=== PATIENT | female | born 1980 | race Caucasian/White ===

== ENCOUNTER 2017-03-30 02:07 | Inpatient (IN) | payer OTHER ==
[~2017-03-30] VITALS: Ht 157.5 cm; Wt 94.0 kg
[2017-03-30 06:00] VITALS: BP 105/60; RESP 20
[2017-03-30 06:01] VITALS: Ht 157.5 cm; Wt 94.0 kg
[2017-03-30] MEDS ORDERED: METF500T3 PO (06:02)
[2017-03-30 06:08] VITALS: BP 131/72; PULSE 85; RESP 18
[2017-03-30] MEDS ORDERED: OMEP40CA6 PO (06:08)
[2017-03-30] MEDS ORDERED: TRAM50TA2 PO (06:08)
[2017-03-30] MEDS ORDERED: IBUP200C PO (06:08)
[2017-03-30] MEDS ORDERED: GABA300C PO (06:08)
[2017-03-30 08:00] VITALS: BP 85/54; RESP 20
[2017-03-30] MEDS ORDERED: DEXTROSE 5%-0.45% NACL 1,000 ML IV SCH (08:59)
[2017-03-30] MEDS ORDERED: NACL 0.9% 3 ML SYG IV SCH (09:00)
[2017-03-30] MEDS ORDERED: ONDANSETRON 4 MG INJ IV PRN (09:00)
[2017-03-30] MEDS ORDERED: ALBUTEROL/IPRATROPIUM (NEB) 3 ML AMP HHN PRN (09:00)
--- NOTE | 2017-03-30 09:41 | HP ---
Date/Time of Note Date/Time of Note DATE: 03/30/17 TIME: 09:31 Assessment/Plan VTE Prophylaxis VTE Prophylaxis Intervention: SCD's Lines/Catheters IV Catheter Type (from Nrs): Saline [place] Assessment/Plan Assessment/Plan 1. Abdominal pain with diarrhea, possibly from a calculus cholecystitis vs gastritis/PUD vs possible infectious process -will obtain right upper quadrant ultrasound -will empirically treat with IV antibiotic -Surgical consult -PPI -Check LFTs and lipase -Check C. difficile and stool culture 2. History of type 2 diabetes -Check A1c -Insulin while in-house 3. History of gastritis -PPI 4. Obesity with a BMI of 38 -Weight reduction advised HPI/ROS Admit Date/Time Admit Date/Time Mar 30, 2017 at 05:30 Hx of Present Illness This is a 36-year-old obese female with a history of type 2 diabetes, gastritis , and a neuropathy who initially presented to [facility] ER complaining of abdominal pain 2 days. Patient was transferred to [facility] for insurance reasons. Pain is in the epigastric and also right upper quadrant area. The pain intermittently radiates to her back. She reported associated diarrhea described as watery and loose. She also reported nausea and nonbloody nonbilious vomiting. She said she had similar symptom but was less intensity 2 months ago. At that time she said she was diagnosed with a UTI and treated with antibiotic. On further questioning, she said she had tacos at a friend's house and she thinks it was under cooked. She had imaging at the outside hospital which showed pericholecystic fluid, but was negative for Gallstones. Her initial vitals was within normal limits except that she was tachycardic with a heart rate of 111.. LFTs and lipase were within acceptable range. PMH/Family/Social Social History Smoking Status: Never smoker Exam/Review of Systems Vital Signs Vitals Vital Signs Date Time Temp Pulse Resp B/P Pulse Ox O2 Delivery O2 Flow Rate FiO2 03/30/17 08:00 98.2 60 20 85/54 95 Exam Constitutional: alert, oriented Head: atraumatic, normocephalic Eyes: EOMI Respiratory: clear to auscultation, normal air movement Cardiovascular: nl pulses, regular rate and rhythm Gastrointestinal: soft, tender Extremities: normal pulses Medications Medications Current Medications Influenza Virus Vaccine 0.5 ml 0.5 ml ONCE ONCE IM* ; Start 03/30/17 at 10:00; Stop 03/30/17 at 10:01 Dextrose/Sodium Chloride (D5-1/2ns) 1,000 ml @ 100 mls/hr Q10H IV ; Start 05/06 at 08:59 Ondansetron HCl (Zofran Inj) 4 mg Q6H PRN IV NAUSEA AND/OR VOMITING; Start 05/06 at 09:00 Morphine Sulfate (morphine) 3 mg Q4H PRN IV SEVERE PAIN LEVEL 7-10; Start 05/06 at 09:00 Famotidine (Pepcid Iv) 20 mg Q12 IV ; Start 03/30/17 at 09:00 Miscellaneous Information (* Miscellaneous Pharmacy Order) Discontinue current oral sulfonylur... ONCE ONCE XX ; Start 03/30/17 at 09:30; Stop 03/30/17 at 09:31 Diagnostic Test (Pha) (Accu-Chek) 1 ea 02 XX ; Start 03/31/17 at 02:00 Miscellaneous Information (* Miscellaneous Pharmacy Order) HYPOGLYCEMIA PROTOCOL w... ONCE ONCE XX ; Start 03/30/17 at 09:30; Stop 03/30/17 at 09:31 Miscellaneous Information (* Miscellaneous Pharmacy Order) Discontinue all previ... ONCE ONCE XX ; Start 03/30/17 at 09:30; Stop 03/30/17 at 09:31 Diagnostic Test (Pha) (Accu-Chek) 1 ea 02 XX ; Start 03/31/17 at 02:00 Ketorolac Tromethamine (Toradol) 30 mg Q6H PRN IV PAIN; Start 03/30/17 at 09: 30; Stop 04/02/17 at 09:29 Insulin Aspart (Novolog Insulin Pen) (Adult SC Insulin - Mild Algorithm)... Q6 SC ; Start 03/30/17 at 12:00 YAZMIN ESCOBAR MD Mar 30, 2017 09:41
[2017-03-30] MEDS ORDERED: SOD CHLORIDE 0.9% 1,000 ML IV SCH (10:00)
[2017-03-30] MEDS ORDERED: INFLUENZA VIRUS VACCINE 0.5 ML SYG IM* ONE (10:00)
[2017-03-30] MEDS: morphine 2 MG INJ IV PRN ×2 (10:17→17:56)
[2017-03-30 10:53] LABS: BASOPHILS % 0.3 % (0.0-2.0); EOSINOPHILS # 0.1 10^3/ul (0.0-0.5); EOSINOPHILS % 1.2 % (0.0-7.0); HEMATOCRIT 34.2 % (37.0-47.0); HEMOGLOBIN 10.9 g/dl (12.0-16.0); LYMPHOCYTES # 2.5 10^3/ul (0.8-2.9); LYMPHOCYTES % 28.1 % (15.0-51.0); MEAN CORPUSCULAR HEMOGLOBIN 24.9 pg (29.0-33.0); MEAN CORPUSCULAR HGB CONC 31.9 g/dl (32.0-37.0); MEAN CORPUSCULAR VOLUME 78.1 fl (82.0-101.0); MEAN PLATELET VOLUME 8.7 fl (7.4-10.4); MONOCYTE # 0.5 10^3/ul (0.3-0.9); MONOCYTES % 5.1 % (0.0-11.0); NEUTROPHIL # 5.8 10^3/ul (1.6-7.5); PLATELET COUNT 386 10^3/UL (140-415); RED BLOOD COUNT 4.38 10^6/ul (4.20-5.40); RED CELL DISTRIBUTION WIDTH 14.6 % (11.5-14.5)
[2017-03-30 11:11] LABS: ALBUMIN 3.7 g/dl (3.3-4.9); ALBUMIN/GLOBULIN RATIO 1.23; BILIRUBIN,INDIRECT 0.7 mg/dl (0-1.1); BILIRUBIN,TOTAL 0.7 mg/dl (0.2-1.3); CALCIUM 8.6 mg/dl (8.4-10.2); CHOL/HDL RATIO 3.5 RATIO; CREATININE 0.75 mg/dl (0.44-1.00); MAGNESIUM 2.1 mg/dl (1.7-2.5); PHOSPHORUS 4.3 mg/dl (2.5-4.9); POTASSIUM 3.6 mmol/L (3.5-5.1); TOTAL PROTEIN 6.7 g/dl (6.1-8.1)
[2017-03-30] MEDS: DEXTROSE 5%-0.9% NACL 1,000 ML IV SCH ×3 (11:25→23:52)
[2017-03-30] MEDS: FAMOTIDINE 20 MG INJ IV SCH ×2 (11:25→21:03)
[2017-03-30] MEDS: PIPER-TAZO 3.375 GM IV (PMX) 100 ML IVPB SCH ×3 (11:35→23:45)
--- NOTE | 2017-03-30 11:40 | RADRPT ---
PROCEDURE: US Abdomen and retroperitoneal complete. CLINICAL INDICATION: abdominal pain TECHNIQUE: Multiple real-time images were acquired of the patient's abdomen and retroperitoneum ut ilizing a high resolution transducer. COMPARISON: None FINDINGS: The liver demonstrates increased echogenicity. The liver is normal in size and no focal solid lesio ns are seen. The portal vein is patent with normal direction of flow. No intrahepatic biliary dila tation is seen. The liver measures 18.1 cm in length. No gallstones are identified within the gallbladder. There is no pericholecystic fluid or gallbladd er wall thickening. The common bile duct measures 4 mm in maximal dimension. The visualized portions of the pancreas are unremarkable. The tail of the pancreas is not seen. The spleen is normal in size. The spleen measures 10.9 cm in length. No free fluid is identified. The kidneys are normal in size, and demonstrate normal cortical echogenicity and cortical thickness. The right kidney measures 9.9 cm. The left kidney measures 10.5 cm. There is no evidence of hydr onephrosis. There are no kidney stones. The proximal aorta measures 1.7 cm in transverse dimension. RPTAT: AA IMPRESSION: Diffuse fatty infiltration of the liver. Otherwise unremarkable. .Robert Newell MD, Date Time Electronically viewed and signed by .Robert Newell MD, MD on 03/30/2017 11:39 .S/
[2017-03-30] MEDS ORDERED: INSULIN ASPART [NOVOLOG] 3 ML PEN SC SCH (12:15)
[2017-03-30] MEDS: Insulin NOVOLOG SS MILD Algorithm (NPO/TPN/ENTERAL FEEDS) SC SCH ×3 (12:51→23:49)
[2017-03-30 15:24] VITALS: BP 92/54; RESP 18
[2017-03-30] MEDS: PANTOPRAZOLE 40 MG INJ IV SCH (17:51)
[2017-03-30 18:05] LABS: ADD UMIC NO; UR AMORPHOUS CRYSTAL FEW /HPF (NONE SEEN); UR ASCORBIC ACID NEGATIVE (NEGATIVE); UR BILIRUBIN (Dip) NEGATIVE (NEGATIVE); UR BLOOD (Dip) NEGATIVE (NEGATIVE); UR CLARITY SLIGHTLY CLOUDY (CLEAR); UR COLOR YELLOW (YELLOW); UR GLUCOSE (Dip) NEGATIVE (NEGATIVE); UR KETONES (Dip) NEGATIVE (NEGATIVE); UR LEUKOCYTE ESTERASE (Dip) NEGATIVE Leu/ul (NEGATIVE); UR NITRITE (Dip) NEGATIVE (NEGATIVE); UR RBC 1 /HPF (0-5); UR SPECIFIC GRAVITY (Dip) 1.018 (1.003-1.030); UR SQUAMOUS EPITHELIAL CELL FEW /HPF (FEW); UR TOTAL PROTEIN (Dip) NEGATIVE (NEGATIVE); UR UROBILINOGEN (Dip) NEGATIVE (NEGATIVE)
[2017-03-30 20:32] VITALS: BP 105/55; RESP 18
[2017-03-30] MEDS: KETOROLAC 30 MG INJ IV PRN (21:04)
[2017-03-31 02:00] VITALS: BP 92/55; RESP 20
[2017-03-31] MEDS: ACCU-CHEK XX SCH ×2 (02:00)
[2017-03-31] MEDS: PANTOPRAZOLE 40 MG INJ IV SCH ×2 (05:32→17:08)
[2017-03-31] MEDS: PIPER-TAZO 3.375 GM IV (PMX) 100 ML IVPB SCH ×3 (05:33→17:08)
[2017-03-31] MEDS: Insulin NOVOLOG SS MILD Algorithm (NPO/TPN/ENTERAL FEEDS) SC SCH ×3 (05:42→17:10)
[2017-03-31 05:44] LABS: BASOPHIL # 0.1 10^3/ul (0.0-0.1); BASOPHILS % 0.7 % (0.0-2.0); EOSINOPHILS # 0.2 10^3/ul (0.0-0.5); EOSINOPHILS % 2.1 % (0.0-7.0); HEMATOCRIT 34.2 % (37.0-47.0); HEMOGLOBIN 10.6 g/dl (12.0-16.0); LYMPHOCYTES # 1.7 10^3/ul (0.8-2.9); LYMPHOCYTES % 22.6 % (15.0-51.0); MEAN CORPUSCULAR HEMOGLOBIN 24.5 pg (29.0-33.0); MEAN PLATELET VOLUME 8.5 fl (7.4-10.4); MONOCYTE # 0.4 10^3/ul (0.3-0.9); MONOCYTES % 5.7 % (0.0-11.0); NEUTROPHIL # 5.2 10^3/ul (1.6-7.5); NEUTROPHILS % 68.6 % (39.0-77.0); PLATELET COUNT 358 10^3/UL (140-415); RED BLOOD COUNT 4.33 10^6/ul (4.20-5.40); RED CELL DISTRIBUTION WIDTH 14.6 % (11.5-14.5); WHITE BLOOD COUNT 7.6 10^3/ul (4.8-10.8)
[2017-03-31 06:02] LABS: CREATININE 0.88 mg/dl (0.44-1.00); MAGNESIUM 2.1 mg/dl (1.7-2.5); POTASSIUM 3.7 mmol/L (3.5-5.1)
[2017-03-31 07:26] VITALS: BP 91/51; RESP 18
[2017-03-31] MEDS: DEXTROSE 5%-0.9% NACL 1,000 ML IV SCH ×3 (07:30→17:10)
[2017-03-31] MEDS: FAMOTIDINE 20 MG INJ IV SCH (09:56)
[2017-03-31] MEDS: morphine 2 MG INJ IV PRN (10:14)
--- NOTE | 2017-03-31 13:56 | CONS ---
Date/Time of Note Date/Time of Note DATE: 03/31/17 TIME: 13:30 Assessment/Plan Assessment/Plan Chief Complaint/Hosp Course Summary Assessment and Plan: Assessment: Abdominal pain DDX: PUD vs gastritis vs celiac disease vs microscopic colitis Microcytic anemia Type 2 diabetes Obesity Plan: Upper endoscopy/Colonoscopy-scheduled for 04/01 Risks/benefits/alternatives/indications of procedure and sedation/anesthesia discussed with patient who states understanding and gives informed consent to proceed. Questions were answered. Clear liquids diet today- then NPO after midnight Continue PPI therapy Continue pain management Continue antiemetic therapy Patient seen in collaboration with Dr. Silva Chief Complaint/Reason for Visit: Abdominal pain with diarrhea x 2 days, nausea, and vomiting History of Present Illness: 36 year old female with history of abdominal pain since Tuesday accompanied with n/v and diarrhea x2 days. Initially she c/o epigastric pain described as burning , now she c/o LLQ and RLQ pain intermittently radiating to her back. Abdominal u /s on 03/30 shows fatty liver otherwise negative. No further episodes of diarrhea. She denies melena, hematemesis, hematochezia, or unintentional weight loss. Patient has a hx of GERD well controlled with PPI therapy, hx of previous shoulder surgery 2016, and has taken ibuprofen 600mg to 800mg daily since surgery. No previous endoscopies, noted. Past Medical History: Low grade anemia Gastritis Internal hemorrhoids Type 2 diabetes Neuropathy Left shoulder surgery x2 x3 Allergies: No know drug allergies Family History: Gallbladder cancer i.e. mother DM HTN Social History: ETOH x2 drinks per month Denies smoking Denies drug use Problems: Consultation Date/Type/Reason Admit Date/Time Mar 30, 2017 at 05:30 Date of Consultation: Mar 31, 2017 Social History Smoking Status: Never smoker Exam/Review of Systems Vital Signs Vitals Vital Signs Date Time Temp Pulse Resp B/P Pulse Ox O2 Delivery O2 Flow Rate FiO2 03/31/17 07:26 97.6 77 18 91/51 92 Intake and Output 03/30/17 03/30/17 03/31/17 15:00 23:00 07:00 Intake Total 100 ml 600 ml 1200 ml Output Total 400 ml Balance 100 ml 600 ml 800 ml Results Result Diagram: 03/31/17 0516 03/31/17 0516 Results 24 hrs Laboratory Tests Test 03/30/17 17:36 03/30/17 17:50 03/30/17 23:48 03/31/17 05:16 Bedside Glucose 129 140 Urine Color YELLOW Urine Clarity SLIGHTLY CLOUDY A Urine pH 5.0 Urine Specific [place] 1.018 Urine Ketones NEGATIVE Urine Nitrite NEGATIVE Urine Bilirubin NEGATIVE Urine Urobilinogen NEGATIVE Urine Leukocyte Esterase NEGATIVE Urine Microscopic RBC 1 Urine Microscopic WBC 1 Urine Squamous Epithelial Cells FEW Urine Amorphous Crystals FEW A Urine Hemoglobin NEGATIVE Urine Glucose NEGATIVE Urine Total Protein NEGATIVE White Blood Count 7.6 Red Blood Count 4.33 Hemoglobin 10.6 L Hematocrit 34.2 L Mean Corpuscular Volume 79.0 L Mean Corpuscular Hemoglobin 24.5 L Mean Corpuscular Hemoglobin Concent 31.0 L Red Cell Distribution Width 14.6 H Platelet Count 358 Mean Platelet Volume 8.5 Neutrophils % 68.6 Lymphocytes % 22.6 Monocytes % 5.7 Eosinophils % 2.1 Basophils % 0.7 Nucleated Red Blood Cells % 0.0 Neutrophils # 5.2 Lymphocytes # 1.7 Monocytes # 0.4 Eosinophils # 0.2 Basophils # 0.1 Nucleated Red Blood Cells # 0.0 Sodium Level 139 Potassium Level 3.7 Chloride Level 108 Carbon Dioxide Level 27 Anion Gap 8 Blood Urea Nitrogen 10 Creatinine 0.88 Glucose Level 149 Calcium Level 8.0 L Phosphorus Level 4.0 Magnesium Level 2.1 Test 03/31/17 05:34 03/31/17 11:43 Bedside Glucose 142 121 Medications Medications Current Medications Ondansetron HCl (Zofran Inj) 4 mg Q6H PRN IV NAUSEA AND/OR VOMITING Last administered on 03/31/17 11:44; Admin Dose 4 MG; Start 03/30/17 at 09:00 Morphine Sulfate (morphine) 3 mg Q4H PRN IV SEVERE PAIN LEVEL 7-10 Last administered on 03/31/17 10:14; Admin Dose 3 MG; Start 03/30/17 at 09:00 Famotidine (Pepcid Iv) 20 mg Q12 IV Last administered on 03/31/17 09:56; Admin Dose 20 MG; Start 03/30/17 at 09:00 Diagnostic Test (Pha) (Accu-Chek) 1 ea 02 XX ; Start 03/31/17 at 02:00 Diagnostic Test (Pha) (Accu-Chek) 1 ea 02 XX ; Start 03/31/17 at 02:00 Ketorolac Tromethamine (Toradol) 30 mg Q6H PRN IV PAIN Last administered on 21:04; Admin Dose 30 MG; Start 03/30/17 at 09:30; Stop 04/02/17 at 09: 29 Insulin Aspart (Adult SC Insulin - Mild Algorithm)... Q6 SC Last administered on 03/31/17 05:42; Admin Dose 1 UNIT; Start 03/30/17 at 12:00 Piperacillin Sod/ Tazobactam Sod 100 ml @ 200 mls/hr Q6 IVPB Last administered on 03/31/17 11:09; Admin Dose 200 MLS/HR; Start 03/30/17 at 12: 00 Dextrose/Sodium Chloride (D5-NS) 1,000 ml @ 100 mls/hr Q10H IV Last administered on 03/31/17 09:56; Admin Dose 100 MLS/HR; Start 03/30/17 at 11: 30 Pantoprazole (Protonix Iv) 40 mg BID@06,18 IV Last administered on 03/31/17 05:32; Admin Dose 40 MG; Start 03/30/17 at 18:00 ANATOLY SÁNCHEZ Mar 31, 2017 13:42
[2017-03-31] MEDS ORDERED: BISACODYL (EC) 5 MG TAB PO ONE (14:30)
[2017-03-31] MEDS ORDERED: MAGNESIUM CITRATE 300 ML BTL PO ONE ×2 (17:30→20:30)
[2017-03-31] MEDS ORDERED: POLYETHYLENE GLYCOL 3350 119 GM POWDER PO ONE (18:30)
[2017-03-31 19:32] VITALS: BP 109/55; RESP 20
--- NOTE | 2017-03-31 20:21 | RADRPT ---
PROCEDURE: X-ray Chest. CLINICAL INDICATION: Preoperative evaluation. TECHNIQUE: PA and lateral chest x-ray. COMPARISON: None available. FINDINGS: The cardiomediastinal silhouette is within normal limits. The lungs are clear without fo tres consolidation, effusion, or pneumothorax. There are no acute osseous abnormalities. There is pos toperative change in the proximal left humerus. IMPRESSION: 1. No acute cardiopulmonary abnormality. RPTAT: HLBP .Bhavik Gonsales MD, MD Date Time Electronically viewed and signed by .Bhavik Gonsales MD, MD on 03/31/2017 20:21 .P/
--- NOTE | 2017-03-31 21:38 | PN ---
Date/Time of Note Date/Time of Note DATE: 03/31/17 TIME: 21:35 Assessment/Plan VTE Prophylaxis VTE Prophylaxis Intervention: SCD's Lines/Catheters IV Catheter Type (from Nrs): Peripheral IV Assessment/Plan Chief Complaint/Hosp Course Assessment and plan 1. Reported abdominal pain. Previous imaging from outside facility was suspect for possible cholecystitis however abdominal ultrasound imaging done while in-house was negative for any acute findings. Lipase normal. patient initially started on PPI medication with no good response. [employer] was consulted. Tentative plan for EGD. 2. Type 2 diabetes. Continue insulin regimen. Will just need. Stable at present. 3. History of gastritis. Continue PPI medication 4. Obesity. BMI of 38. Weight reduction is advised. Disposition plan: Tentative plan for GI intervention. Continue with PPI medication for now. Discussed plan of care with Dr. Frost Problems: Subjective 24 Hr Interval Summary Free Text/Dictation Patient still reports of abdominal pain. More epigastric area. 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, nl mental status, nl speech Results Result Diagram: 03/31/1716 03/31/1716 Results 24 hrs Laboratory Tests Test 03/30/17 23:48 03/31/17 05:16 03/31/17 05:34 03/31/17 11:43 Bedside Glucose 140 142 121 White Blood Count 7.6 Red Blood Count 4.33 Hemoglobin 10.6 L Hematocrit 34.2 L Mean Corpuscular Volume 79.0 L Mean Corpuscular Hemoglobin 24.5 L Mean Corpuscular Hemoglobin Concent 31.0 L Red Cell Distribution Width 14.6 H Platelet Count 358 Mean Platelet Volume 8.5 Neutrophils % 68.6 Lymphocytes % 22.6 Monocytes % 5.7 Eosinophils % 2.1 Basophils % 0.7 Nucleated Red Blood Cells % 0.0 Neutrophils # 5.2 Lymphocytes # 1.7 Monocytes # 0.4 Eosinophils # 0.2 Basophils # 0.1 Nucleated Red Blood Cells # 0.0 Sodium Level 139 Potassium Level 3.7 Chloride Level 108 Carbon Dioxide Level 27 Anion Gap 8 Blood Urea Nitrogen 10 Creatinine 0.88 Glucose Level 149 Calcium Level 8.0 L Phosphorus Level 4.0 Magnesium Level 2.1 Test 03/31/17 17:10 Bedside Glucose 119 Medications Medications Current Medications Ondansetron HCl (Zofran Inj) 4 mg Q6H PRN IV NAUSEA AND/OR VOMITING Last administered on 03/31/17 11:44; Admin Dose 4 MG; Start 03/30/17 at 09:00 Morphine Sulfate (morphine) 3 mg Q4H PRN IV SEVERE PAIN LEVEL 7-10 Last administered on 03/31/17 10:14; Admin Dose 3 MG; Start 03/30/17 at 09:00 Diagnostic Test (Pha) (Accu-Chek) 1 ea 02 XX ; Start 03/31/17 at 02:00 Diagnostic Test (Pha) (Accu-Chek) 1 ea 02 XX ; Start 03/31/17 at 02:00 Ketorolac Tromethamine (Toradol) 30 mg Q6H PRN IV PAIN Last administered on 21:04; Admin Dose 30 MG; Start 03/30/17 at 09:30; Stop 04/02/17 at 09: 29 Insulin Aspart (Adult SC Insulin - Mild Algorithm)... Q6 SC Last administered on 03/31/17 05:42; Admin Dose 1 UNIT; Start 03/30/17 at 12:00 Piperacillin Sod/ Tazobactam Sod 100 ml @ 200 mls/hr Q6 IVPB Last administered on 03/31/17 17:08; Admin Dose 200 MLS/HR; Start 03/30/17 at 12: 00 Dextrose/Sodium Chloride (D5-NS) 1,000 ml @ 100 mls/hr Q10H IV Last administered on 03/31/17 09:56; Admin Dose 100 MLS/HR; Start 03/30/17 at 11: 30 Pantoprazole (Protonix Iv) 40 mg BID@06,18 IV Last administered on 03/31/17 17:08; Admin Dose 40 MG; Start 03/30/17 at 18:00 DUSTIN HUERTAS Mar 31, 2017 21:38
[2017-04-01] VITALS (15 sets, daily range): BP systolic 71–109; BP diastolic 48–73; PULSE 71–92; RESP 12–22
[2017-04-01] MEDS: PIPER-TAZO 3.375 GM IV (PMX) 100 ML IVPB SCH ×4 (00:49→20:18)
[2017-04-01] MEDS: ACCU-CHEK XX SCH ×2 (01:01)
[2017-04-01 05:46] LABS: BASOPHIL # 0.1 10^3/ul (0.0-0.1); BASOPHILS % 0.7 % (0.0-2.0); EOSINOPHILS # 0.2 10^3/ul (0.0-0.5); EOSINOPHILS % 2.5 % (0.0-7.0); HEMATOCRIT 34.7 % (37.0-47.0); HEMOGLOBIN 10.8 g/dl (12.0-16.0); LYMPHOCYTES # 2.3 10^3/ul (0.8-2.9); LYMPHOCYTES % 31.4 % (15.0-51.0); MEAN CORPUSCULAR HEMOGLOBIN 24.7 pg (29.0-33.0); MEAN CORPUSCULAR HGB CONC 31.1 g/dl (32.0-37.0); MEAN CORPUSCULAR VOLUME 79.4 fl (82.0-101.0); MEAN PLATELET VOLUME 8.7 fl (7.4-10.4); MONOCYTE # 0.4 10^3/ul (0.3-0.9); MONOCYTES % 5.6 % (0.0-11.0); NEUTROPHIL # 4.4 10^3/ul (1.6-7.5); NEUTROPHILS % 59.7 % (39.0-77.0); PLATELET COUNT 396 10^3/UL (140-415); RED BLOOD COUNT 4.37 10^6/ul (4.20-5.40); RED CELL DISTRIBUTION WIDTH 14.4 % (11.5-14.5); WHITE BLOOD COUNT 7.3 10^3/ul (4.8-10.8)
[2017-04-01] MEDS ORDERED: POLYETHYLENE GLYCOL 3350 119 GM POWDER PO ONE (06:00)
[2017-04-01] MEDS: Insulin NOVOLOG SS MILD Algorithm (NPO/TPN/ENTERAL FEEDS) SC SCH ×3 (06:00→12:00)
[2017-04-01 06:15] LABS: CALCIUM 8.5 mg/dl (8.4-10.2); CREATININE 0.88 mg/dl (0.44-1.00); POTASSIUM 3.6 mmol/L (3.5-5.1)
[2017-04-01] MEDS: DEXTROSE 5%-0.9% NACL 1,000 ML IV SCH ×2 (06:30→13:28)
[2017-04-01] MEDS: PANTOPRAZOLE 40 MG INJ IV SCH ×2 (06:30→20:18)
[2017-04-01] MEDS ORDERED: BISACODYL (EC) 5 MG TAB PO ONE (08:00)
--- NOTE | 2017-04-01 14:38 | PN ---
Date/Time of Note Date/Time of Note DATE: 04/01/17 TIME: 14:36 Assessment/Plan VTE Prophylaxis VTE Prophylaxis Intervention: SCD's Lines/Catheters IV Catheter Type (from Nrs): Peripheral IV Assessment/Plan Assessment/Plan 1. Reported abdominal pain. Previous imaging from outside facility was suspect for possible cholecystitis however abdominal ultrasound imaging done while in-house was negative for any acute findings. Lipase patient initially started on PPI medication with no good response. [employer] was consulted. Tentative plan for EGD and colonoscopy today, US negative for cholecystitis, d/w Gen Surg [place]- no need for consult 2. Level normal. Type 2 diabetes. Continue insulin regimen. Will just need. Stable at present. 3. History of gastritis. Continue PPI medication 4. Obesity. BMI of 38. Weight reduction is advised. Pepcid for GI prophylaxis, SCD for DVT prophylaxis Disposition plan: EGD and colonoscopy today, Subjective 24 Hr Interval Summary Free Text/Dictation no acute events, abd pain controlled, BP stable Exam/Review of Systems Vital Signs Vitals Vital Signs Date Time Temp Pulse Resp B/P Pulse Ox O2 Delivery O2 Flow Rate FiO2 04/01/17 14:15 98.4 70 20 98/56 97 Intake and Output 03/31/17 03/31/17 04/01/17 15:00 23:00 07:00 Intake Total 500 ml 1560 ml 500 ml Balance 500 ml 1560 ml 500 ml Exam Constitutional: alert Psych: no complaints Head: normocephalic ENMT: nl external ears & nose Neck: non-tender, supple Respiratory: clear to auscultation, diminished breath sounds, normal air movement Cardiovascular: regular rate and rhythm Gastrointestinal: non-tender, other (obese abdomen ), soft Musculoskeletal: nl extremities to inspection Extremities: normal pulses Neurological: ASSISTED LIVING COORDINATOR II-XII intact, nl mental status, nl speech, nl strength Skin: nl turgor Lymph: nl lymph nodes Results Result Diagram: 04/01/1710 04/01/17 0510 Results 24 hrs Laboratory Tests Test 03/31/17 17:10 04/01/17 00:48 04/01/17 05:10 04/01/17 06:36 Bedside Glucose 119 113 129 White Blood Count 7.3 Red Blood Count 4.37 Hemoglobin 10.8 L Hematocrit 34.7 L Mean Corpuscular Volume 79.4 L Mean Corpuscular Hemoglobin 24.7 L Mean Corpuscular Hemoglobin Concent 31.1 L Red Cell Distribution Width 14.4 Platelet Count 396 Mean Platelet Volume 8.7 Neutrophils % 59.7 Lymphocytes % 31.4 Monocytes % 5.6 Eosinophils % 2.5 Basophils % 0.7 Nucleated Red Blood Cells % 0.0 Neutrophils # 4.4 Lymphocytes # 2.3 Monocytes # 0.4 Eosinophils # 0.2 Basophils # 0.1 Nucleated Red Blood Cells # 0.0 Sodium Level 144 Potassium Level 3.6 Chloride Level 108 Carbon Dioxide Level 27 Anion Gap 13 Blood Urea Nitrogen 5 L Creatinine 0.88 Glucose Level 128 Calcium Level 8.5 Test 04/01/17 12:06 Bedside Glucose 124 Medications Medications Current Medications Ondansetron HCl (Zofran Inj) 4 mg Q6H PRN IV NAUSEA AND/OR VOMITING Last administered on 03/31/17 11:44; Admin Dose 4 MG; Start 03/30/17 at 09:00 Morphine Sulfate (morphine) 3 mg Q4H PRN IV SEVERE PAIN LEVEL 7-10 Last administered on 03/31/17 10:14; Admin Dose 3 MG; Start 03/30/17 at 09:00 Diagnostic Test (Pha) (Accu-Chek) 1 ea 02 XX ; Start 03/31/17 at 02:00 Diagnostic Test (Pha) (Accu-Chek) 1 ea 02 XX ; Start 03/31/17 at 02:00 Ketorolac Tromethamine (Toradol) 30 mg Q6H PRN IV PAIN Last administered on 21:04; Admin Dose 30 MG; Start 03/30/17 at 09:30; Stop 04/02/17 at 09: 29 Insulin Aspart (Adult SC Insulin - Mild Algorithm)... Q6 SC Last administered on 03/31/17 05:42; Admin Dose 1 UNIT; Start 03/30/17 at 12:00 Piperacillin Sod/ Tazobactam Sod 100 ml @ 200 mls/hr Q6 IVPB Last administered on 04/01/17 12:28; Admin Dose 200 MLS/HR; Start 03/30/17 at 12: 00 Dextrose/Sodium Chloride (D5-NS) 1,000 ml @ 100 mls/hr Q10H IV Last administered on 04/01/17 06:30; Admin Dose 100 MLS/HR; Start 03/30/17 at 11: 30 Pantoprazole (Protonix Iv) 40 mg BID@06,18 IV Last administered on 04/01/17t 06:30; Admin Dose 40 MG; Start 03/30/17 at 18:00 BOBBY IZAGUIRRE MD Apr 01, 2017 14:38
--- NOTE | 2017-04-01 16:07 | RADRPT ---
Vent Rate: 70 bpm RR Interval: 0 msec MA Interval: 174 msec QRS Duration: 70 msec QT Interval: 408 msec QTC Interval: 440 msec P-R-T [place]: 39 - 73 - 64 degrees Normal sinus rhythm Normal ECG Electronically Signed By: Raoul Taveras [id number]
[2017-04-01] MEDS ORDERED: PROPOFOL 40 ML ONE (17:32)
--- NOTE | 2017-04-01 17:51 | CONS ---
Date/Time of Note Date/Time of Note DATE: 04/01/17 TIME: 17:10 Assessment/Plan Assessment/Plan Additional Assessment/Plan Assessment: Abdominal pain DDX: PUD vs gastritis vs celiac disease vs microscopic colitis Microcytic anemia Type 2 diabetes Obesity Plan: Upper endoscopy/Colonoscopy-scheduled for 04/01 Risks/benefits/alternatives/indications of procedure and sedation/anesthesia discussed with patient who states understanding and gives informed consent to proceed. Questions were answered. Clear liquids diet today- then NPO after midnight Continue PPI therapy Continue pain management Continue antiemetic therapy Patient seen in collaboration with Dr. Silva Chief Complaint/Reason for Visit: Abdominal pain with diarrhea x 2 days, nausea, and vomiting History of Present Illness: 36 year old female with history of abdominal pain since Tuesday accompanied with n/v and diarrhea x2 days. Initially she c/o epigastric pain described as burning , now she c/o LLQ and RLQ pain intermittently radiating to her back. Abdominal u /s on 03/30 shows fatty liver otherwise negative. No further episodes of diarrhea. She denies melena, hematemesis, hematochezia, or unintentional weight loss. Patient has a hx of GERD well controlled with PPI therapy, hx of previous shoulder surgery 2016, and has taken ibuprofen 600mg to 800mg daily since surgery. No previous endoscopies, noted. Past Medical History: Low grade anemia Gastritis Internal hemorrhoids Type 2 diabetes Neuropathy Left shoulder surgery x2 x3 Allergies: No know drug allergies Family History: Gallbladder cancer i.e. mother DM HTN Social History: ETOH x2 drinks per month Denies smoking Denies drug use PHYSICAL EXAMINATION: GENERAL: Well developed, well nourished, obese, alert & oriented x 3, in no acute distress SKIN: No lesions, no stigmata chronic liver disease, no evidence of bleeding diathesis LYMPHATIC: No palpable lymphadenopathy. HEAD: Normocephalic, atraumatic, no tenderness. EYES: Pupils equal reactive to light and accommodation, full extraocular movements, sclera clear, non-icteric, no discharge. EARS/NOSE AND THROAT: Ears normal, nose normal, oropharynx normal, oral membranes well hydrated without lesions. NECK: Supple, no masses, thyroid normal, JVP within normal limits, carotids normal without bruits. CHEST: Inspection within normal limits. CARDIOVASCULAR: Heart: Regular rate and rhythm, no murmurs, gallops or rubs. Peripheral pulses present within normal limits, no cyanosis, clubbing or edemas. No pulsatile abdominal mass RESPIRATORY: Lungs clear to auscultation and percussion, no wheezing, no rubs GASTROINTESTINAL AND LIVER: Abdomen: Soft, epigastric and lower abdominal tenderness, non-distended, no hernias, no masses, no organomegaly, no ascites, no guarding, no rebound tenderness, normoactive bowel sounds. Rectal: Deferred. GENITOURINARY: [Male genitalia within normal limits.] EXTREMITIES: No cyanosis, clubbing or edema. [MUSCULO-SKELETAL: Gait and station within normal limits, range of motion adequate.] [NEUROLOGIC: Cranial nerves II-XII intact, Motor within normal limits, Sensory within normal limits. Reflexes within normal limits. PSYCHIATRIC: Alert & oriented x 3, mood/affect/judgement adequate] Consultation Date/Type/Reason Admit Date/Time Mar 30, 2017 at 05:30 Psychological: no complaints Social History Smoking Status: Never smoker Exam/Review of Systems Vital Signs Vitals Vital Signs Date Time Temp Pulse Resp B/P Pulse Ox O2 Delivery O2 Flow Rate FiO2 04/01/17 14:15 98.4 70 20 98/56 97 Intake and Output 03/31/17 03/31/17 04/01/17 15:00 23:00 07:00 Intake Total 500 ml 1560 ml 500 ml Balance 500 ml 1560 ml 500 ml Results Result Diagram: 04/01/17 0510 04/01/17 0510 Results 24 hrs Laboratory Tests Test 04/01/17 00:48 04/01/17 05:10 04/01/17 06:36 04/01/17 12:06 Bedside Glucose 113 129 124 White Blood Count 7.3 Red Blood Count 4.37 Hemoglobin 10.8 L Hematocrit 34.7 L Mean Corpuscular Volume 79.4 L Mean Corpuscular Hemoglobin 24.7 L Mean Corpuscular Hemoglobin Concent 31.1 L Red Cell Distribution Width 14.4 Platelet Count 396 Mean Platelet Volume 8.7 Neutrophils % 59.7 Lymphocytes % 31.4 Monocytes % 5.6 Eosinophils % 2.5 Basophils % 0.7 Nucleated Red Blood Cells % 0.0 Neutrophils # 4.4 Lymphocytes # 2.3 Monocytes # 0.4 Eosinophils # 0.2 Basophils # 0.1 Nucleated Red Blood Cells # 0.0 Sodium Level 144 Potassium Level 3.6 Chloride Level 108 Carbon Dioxide Level 27 Anion Gap 13 Blood Urea Nitrogen 5 L Creatinine 0.88 Glucose Level 128 Calcium Level 8.5 Medications Medications Current Medications Ondansetron HCl (Zofran Inj) 4 mg Q6H PRN IV NAUSEA AND/OR VOMITING Last administered on 03/31/17 11:44; Admin Dose 4 MG; Start 03/30/17 at 09:00 Morphine Sulfate (morphine) 3 mg Q4H PRN IV SEVERE PAIN LEVEL 7-10 Last administered on 03/31/17 10:14; Admin Dose 3 MG; Start 03/30/17 at 09:00 Diagnostic Test (Pha) (Accu-Chek) 1 ea 02 XX ; Start 03/31/17 at 02:00 Diagnostic Test (Pha) (Accu-Chek) 1 ea 02 XX ; Start 03/31/17 at 02:00 Ketorolac Tromethamine (Toradol) 30 mg Q6H PRN IV PAIN Last administered on 21:04; Admin Dose 30 MG; Start 03/30/17 at 09:30; Stop 04/02/17 at 09: 29 Insulin Aspart (Adult SC Insulin - Mild Algorithm)... Q6 SC Last administered on 03/31/17 05:42; Admin Dose 1 UNIT; Start 03/30/17 at 12:00 Piperacillin Sod/ Tazobactam Sod 100 ml @ 200 mls/hr Q6 IVPB Last administered on 04/01/17 12:28; Admin Dose 200 MLS/HR; Start 03/30/17 at 12: 00 Dextrose/Sodium Chloride (D5-NS) 1,000 ml @ 100 mls/hr Q10H IV Last administered on 04/01/17 06:30; Admin Dose 100 MLS/HR; Start 03/30/17 at 11: 30 Pantoprazole (Protonix Iv) 40 mg BID@06,18 IV Last administered on 04/01/17 06:30; Admin Dose 40 MG; Start 03/30/17 at 18:00 Copies To: CC: LINETTE SILVA MD, MORDO MD Apr 01, 2017 17:51
[2017-04-01] MEDS ORDERED: ONDANSETRON 4 MG INJ IV PRN (18:00)
[2017-04-01] MEDS ORDERED: hydrALAzine 20 MG INJ IV PRN (18:00)
[2017-04-01] MEDS ORDERED: FENTAnyl 50 MCG/ML VIAL IV PRN ×3 (18:00)
[2017-04-01] MEDS ORDERED: MIDAZOLAM 1 MG/ML 2 ML INJ IV PRN (18:00)
[2017-04-01] MEDS ORDERED: EPHEDrine SULFATE 50 MG/5 ML SYG IV PRN (18:00)
[2017-04-01] MEDS ORDERED: MEPERIDINE 25 MG INJ IV PRN (18:00)
[2017-04-01] MEDS ORDERED: METOCLOPRAMIDE 10 MG INJ IV PRN (18:00)
[2017-04-01] MEDS ORDERED: DIPHENHYDRAMINE 50 MG INJ IV PRN (18:00)
[2017-04-01] MEDS ORDERED: LABETALOL HCL 20MG INJ IV PRN (18:00)
--- NOTE | 2017-04-01 18:36 | OPPN ---
Date/Time of Note Date/Time of Note DATE: 04/01/17 TIME: 18:33 Proc Note GI Procedure Date 04/01/17 Indication: other (Abdominal pain) Pre-procedure Diagnosis Abdominal pain Post-procedure Diagnosis Impression: Moderate gastritis. Rule out H. pylori infection. Biopsies obtained Plan: PPI therapy Review pathology as soon as available Advance diet as tolerated. . Procedure Performed: Other (EGD with biopsies) Surgeon LINETTE KOROMA MD See signature line [employer] Specialist none Anesthesia Type: MAC Anesthesiologist: CHARLES CARABALLO MD Tourniquet Time none EBL none Transfusion required none Biopsy 1: Body and antrum Grafts/Implants none Tubes/Drains none Complication(s) none Disposition: home Procedure Description Preoperative Diagnosis: After informed consent, with the patient/relatives understanding the procedure, its indications, potential risks and complications, including but not limited to : allergic reaction, bleeding, perforation or infection, and after all pertinent questions were answered to the patients satisfaction, the patient/ relatives signed witnessed informed consent. Following this, premedication was administered slowly IV push under careful cardiovascular and respiratory monitoring with pulse oximetry, automatic blood pressure, and teletypesetter monitor. Once the sedative effect was achieved the patient was place in the left lateral decubitus, the panendoscope was introduced and advanced under visual control. Careful examination of the upper gastrointestinal tract, both on insertion as well as withdrawal of the instrument disclosing the following findings: ESOPHAGUS: the mucosa of the entire esophagus was carefully examined and showed the following findings: []the mucosa appears within normal limits. There is no evidence of esophagitis, varices, neoplasm, or stricture. No Hiatal Hernia identified. STOMACH: Upon entrance to the stomach air was insufflated, the gastric melvin distended normally. The mucosa of the fundus, body and antrum of the stomach was carefully examined both head-on and on retroflexion, and showed the following findings: There is moderate erythema and edema of the mucosa of the body and antrum of the stomach. Biopsies were obtained to rule out H. pylori infection. Otherwise the mucosa appears within normal limits with no abnormalities. There is no evidence of ulcers or neoplasm. PYLORUS: The pylorus was carefully examined and showed the following findings: the pylorus appears patent and within normal limits, with no evidence of gastric outlet obstruction. DUODENUM: The duodenal mucosa was carefully examined in the duodenal bulb as well as the second portion of the duodenum and showed the following findings: the mucosa appears unremarkable with no evidence of duodenitis, ulcer or neoplasm. Copies To: CC: LINETTE KOROMA MD, MORDO MD Apr 01, 2017 18:36
--- NOTE | 2017-04-01 18:39 | OPPN ---
Date/Time of Note Date/Time of Note DATE: 04/01/17 TIME: 18:36 Proc Note GI Procedure Date 04/01/17 Indication: other (Abdominal pain) Pre-procedure Diagnosis Abdominal pain Post-procedure Diagnosis Impression: Normal colonic mucosa to cecum. Random biopsies obtained to rule out microscopic, lymphocytic or collagenous colitis. Moderate-sized internal hemorrhoids. Plan: Advance diet as tolerated. Review pathology as soon as available. . Procedure Performed: Other (Colonoscopy with biopsies) Surgeon LINETTE KOROMA MD See signature line [employer] Fre[employer] Handler none Anesthesia Type: MAC Anesthesiologist: CHARLES CARABALLO MD Tourniquet Time none EBL none Transfusion required none Biopsy 1: Right side of the colon Biopsy 2: Left side of the colon Grafts/Implants none Tubes/Drains none Complication(s) none Disposition: home Procedure Description After informed consent, with the patient/relatives understanding the procedure, its indications and potential risks and complications, including but not limited to: Allergic reaction, bleeding, perforation, infection, and after all pertinent questions were answered to the patient's satisfaction, the patient/ relatives signed the witnessed informed consent. Following this, premedication was administered slowly IV push under careful cardiovascular and respiratory monitoring with pulse OXIMETRY, automatic blood pressure, and electric locomotive crane operator. Once the sedative effect was achieved, the patient was placed in the left lateral decubitus position, digital rectal examination was performed. The colonoscope was then introduced and advanced under visual control throughout all segments of the colon including: the rectum, sigmoid, descending colon, splenic flexure, transverse colon, hepatic flexure, ascending colon and finally reaching the cecum which was clearly identified by transillumination, finger indentation and the ileocecal valve. Careful examination of the mucosa of the lower gastrointestinal tract both on insertion as well as withdrawal of the instrument disclosed the following findings: PREPARATION QUALITY: [Adequate], RECTAL EXAM: The anorectal area was visualized examined and digital rectal examination performed with the following findings: No evidence of perirectal disease, no masses. COLONIC MUCOSA: The mucosa of all segments of the colon was carefully examined and showed the following findings: the examined mucosa appears within normal limits. There is no evidence of inflammatory changes, diverticular formation, polyps or other neoplasms, vascular malformation, or any other abnormality. Biopsies were obtained of the right and left side of the colon. Rule out microscopic, lymphocytic or collagenous colitis. Moderate-sized internal hemorrhoids are present. The instrument was then withdrawn, the patient tolerated the procedure well and was transferred out of the Endoscopy Suite awake and in good condition to continue recovery under observation. Copies To: CC: LINETTE KOROMA MD, MORDO MD Apr 01, 2017 18:39
[2017-04-01] MEDS ORDERED: HYOSCYAMINE 0.125 MG TAB PO PRN (19:00)
[2017-04-01] MEDS: INSULIN ASPART [NOVOLOG] 3 ML PEN SC SCH (20:19)
[2017-04-02] MEDS: PIPER-TAZO 3.375 GM IV (PMX) 100 ML IVPB SCH ×4 (00:57→18:42)
[2017-04-02] MEDS: ACCU-CHEK XX SCH (01:25)
[2017-04-02 02:00] VITALS: BP 109/70; PULSE 85; RESP 18
[2017-04-02] MEDS ORDERED: ACCU-CHEK XX SCH (02:00)
[2017-04-02] MEDS: KETOROLAC 30 MG INJ IV PRN (02:55)
[2017-04-02 06:30] LABS: BASOPHILS % 0.6 % (0.0-2.0); EOSINOPHILS # 0.1 10^3/ul (0.0-0.5); EOSINOPHILS % 1.5 % (0.0-7.0); HEMOGLOBIN 10.5 g/dl (12.0-16.0); LYMPHOCYTES # 2.1 10^3/ul (0.8-2.9); MEAN CORPUSCULAR HEMOGLOBIN 24.8 pg (29.0-33.0); MEAN CORPUSCULAR HGB CONC 31.8 g/dl (32.0-37.0); MEAN PLATELET VOLUME 8.6 fl (7.4-10.4); MONOCYTE # 0.4 10^3/ul (0.3-0.9); MONOCYTES % 6.3 % (0.0-11.0); NEUTROPHIL # 3.8 10^3/ul (1.6-7.5); NEUTROPHILS % 59.1 % (39.0-77.0); PLATELET COUNT 378 10^3/UL (140-415); RED BLOOD COUNT 4.23 10^6/ul (4.20-5.40); RED CELL DISTRIBUTION WIDTH 14.4 % (11.5-14.5); WHITE BLOOD COUNT 6.5 10^3/ul (4.8-10.8)
[2017-04-02] MEDS: PANTOPRAZOLE 40 MG INJ IV SCH (06:38)
[2017-04-02 06:43] LABS: INR 1.04; PROTIME 13.6 Sec (12.2-14.2); PT RATIO 1.1
[2017-04-02 06:44] LABS: PARTIAL THROMBOPLASTIN TIME 29.3 Sec (25.0-35.0)
[2017-04-02 07:08] LABS: ALBUMIN 3.3 g/dl (3.3-4.9); ALBUMIN/GLOBULIN RATIO 0.97; BILIRUBIN,INDIRECT 0.1 mg/dl (0-1.1); BILIRUBIN,TOTAL 0.1 mg/dl (0.2-1.3); CALCIUM 8.7 mg/dl (8.4-10.2); CREATININE 0.77 mg/dl (0.44-1.00); POTASSIUM 3.4 mmol/L (3.5-5.1); TOTAL PROTEIN 6.7 g/dl (6.1-8.1)
[2017-04-02 08:07] VITALS: BP 100/61; RESP 20
[2017-04-02] MEDS: INSULIN ASPART [NOVOLOG] 3 ML PEN SC SCH ×4 (08:15→21:00)
--- NOTE | 2017-04-02 09:30 | PN ---
Date/Time of Note Date/Time of Note DATE: 04/02/17 TIME: 09:13 Assessment/Plan VTE Prophylaxis VTE Prophylaxis Intervention: ambulation Lines/Catheters [facility]from [facility] Saline Lock Assessment/Plan Chief Complaint/Hosp Course Summary Assessment and Plan: Assessment: Abdominal pain EGD Impression: Moderate gastritis. Rule out H. pylori infection. Biopsies obtained COLONOSCOPY Impression: Normal colonic mucosa to cecum. Random biopsies obtained to rule out microscopic, lymphocytic or collagenous colitis. Moderate-sized internal hemorrhoids. Microcytic anemia- stable Type 2 diabetes Obesity Plan: Advance diet as tolerated Continue PPI therapy Encourage ambulation CT abd/pelvis for abd pain / microcytic anemia Patient seen in collaboration with Dr. Silva Subjective: Course reviewed with nursing staff Patient interviewed and examined All labs, imaging and other results reviewed The patient lying in bed continues to have abd pain postprandial Discussed results of EGD and colonoscopy with patient- patient verbalized understanding all questions and concerned addressed PHYSICAL EXAMINATION: GENERAL: Well developed, well nourished, obese, alert & oriented x 3, in no acute distress SKIN: No lesions, no stigmata chronic liver disease, no evidence of bleeding diathesis LYMPHATIC: No palpable lymphadenopathy. HEAD: Normocephalic, atraumatic, no tenderness. EYES: Pupils equal reactive to light and accommodation, full extraocular movements, sclera clear, non-icteric, no discharge. EARS/NOSE AND THROAT: Ears normal, nose normal, oropharynx normal, oral membranes well hydrated without lesions. NECK: Supple, no masses, thyroid normal, JVP within normal limits, carotids normal without bruits. CHEST: Inspection within normal limits. CARDIOVASCULAR: Heart: Regular rate and rhythm, no murmurs, gallops or rubs. Peripheral pulses present within normal limits, no cyanosis, clubbing or edemas. No pulsatile abdominal mass RESPIRATORY: Lungs clear to auscultation and percussion, no wheezing, no rubs GASTROINTESTINAL AND LIVER: Abdomen: Soft, epigastric and lower abdominal tenderness, non-distended, no hernias, no masses, no organomegaly, no ascites, no guarding, no rebound tenderness, normoactive bowel sounds. Rectal: Deferred. GENITOURINARY: [Male genitalia within normal limits.] EXTREMITIES: No cyanosis, clubbing or edema. [MUSCULO-SKELETAL: Gait and station within normal limits, range of motion adequate.] [NEUROLOGIC: Cranial nerves II-XII intact, Motor within normal limits, Sensory within normal limits. Reflexes within normal limits. PSYCHIATRIC: Alert & oriented x 3, mood/affect/judgement adequate] Problems: Exam/Review of Systems Vital Signs Vitals Vital Signs Date Time Temp Pulse Resp B/P Pulse Ox O2 Delivery O2 Flow Rate FiO2 04/02/17 08:07 98.4 60 20 100/61 97 04/01/17 20:00 Room Air 04/01/17 19:04 2.0 Intake and Output 04/01/17 04/01/17 04/02/17 15:00 23:00 07:00 Intake Total 1000 ml 750 ml Balance 1000 ml 750 ml Results Result Diagram: 04/02/1752504/02/17 05 Results 24 hrs Laboratory Tests Test 04/01/17 12:06 04/01/17 16:00 04/01/17 20:17 04/02/17 05:26 Bedside Glucose 124 129 Urine Test NEGATIVE White Blood Count 6.5 Red Blood Count 4.23 Hemoglobin 10.5 L Hematocrit 33.0 L Mean Corpuscular Volume 78.0 L Mean Corpuscular Hemoglobin 24.8 L Mean Corpuscular Hemoglobin Concent 31.8 L Red Cell Distribution Width 14.4 Platelet Count 378 Mean Platelet Volume 8.6 Neutrophils % 59.1 Lymphocytes % 32.0 Monocytes % 6.3 Eosinophils % 1.5 Basophils % 0.6 Nucleated Red Blood Cells % 0.0 Neutrophils # 3.8 Lymphocytes # 2.1 Monocytes # 0.4 Eosinophils # 0.1 Basophils # 0.0 Nucleated Red Blood Cells # 0.0 Prothrombin Time 13.6 Prothrombin Time Ratio 1.1 INR International Normalized Ratio 1.04 Activated Partial Thromboplast Time 29.3 Sodium Level 133 L Potassium Level 3.4 L Chloride Level 107 Carbon Dioxide Level 26 Anion Gap 3 #L Blood Urea Nitrogen 4 L Creatinine 0.77 Glucose Level 113 Calcium Level 8.7 Total Bilirubin 0.1 L Direct Bilirubin 0.00 Indirect Bilirubin 0.1 Aspartate Amino Transf (AST/SGOT) 51 H Alanine Aminotransferase (ALT/SGPT) 72 H Alkaline Phosphatase 98 Total Protein 6.7 Albumin 3.3 Globulin 3.40 H Albumin/Globulin Ratio 0.97 Test 04/02/17 08:40 Bedside Glucose 100 Medications Medications Current Medications Ondansetron HCl (Zofran Inj) 4 mg Q6H PRN IV NAUSEA AND/OR VOMITING Last administered on 03/31/17 11:44; Admin Dose 4 MG; Start 03/30/17 at 09:00 Morphine Sulfate (morphine) 3 mg Q4H PRN IV SEVERE PAIN LEVEL 7-10 Last administered on 03/31/17 10:14; Admin Dose 3 MG; Start 03/30/17 at 09:00 Ketorolac Tromethamine 30 mg 30 mg Q6H PRN IV PAIN Last administered on 02:55; Admin Dose 30 MG; Start 03/30/17 at 09:30; Stop 04/02/17 at 09:29 Piperacillin Sod/ Tazobactam Sod (Zosyn 3.375gm/ 100 ml (Pmx)) 100 ml @ 200 mls /hr Q6 IVPB Last administered on 04/02/17 06:38; Admin Dose 200 MLS/HR; Start 03/30/17 at 12:00 Pantoprazole (Protonix Iv) 40 mg BID@06,18 IV Last administered on 04/02/17 06:38; Admin Dose 40 MG; Start 03/30/17 at 18:00 Hyoscyamine (Levsin) 0.125 mg Q4H PRN PO pain; Start 04/01/17 at 19:00 Diagnostic Test (Pha) (Accu-Chek) 1 ea 02 XX ; Start 04/02/17 at 02:00 ANATOLY SÁNCHEZ Apr 02, 2017 09:30
[2017-04-02] MEDS ORDERED: BARIUM SULF 2% 450 ML BTL (BERRY SMOOTHIE) PO ONE (10:00)
--- NOTE | 2017-04-02 10:52 | PN ---
Date/Time of Note Date/Time of Note DATE: 04/02/17 TIME: 10:48 Assessment/Plan VTE Prophylaxis VTE Prophylaxis Intervention: SCD's Lines/Catheters [facility]from [facility] Saline Lock Assessment/Plan Chief Complaint/Hosp Course Assessment and plan 1. Reported abdominal pain. Previous imaging from outside facility was suspect for possible cholecystitis however abdominal ultrasound imaging done while in-house was negative for any acute findings. Lipase normal. Patient initially started on PPI medication with no good response. . Status post EGD with moderate gastritis seen. Follow-up on pathology for H. pylori rule out. 2. Type 2 diabetes. Continue insulin regimen. Will adjust need. Stable at present. 3. History of gastritis. Continue PPI medication 4. Obesity. BMI of 38. Weight reduction is advised. Disposition plan: Tentative plan for further abdominal imaging per GI. Continue PPI. Follow-up on biopsy results. Discussed plan of care with Dr. Frost Problems: Subjective 24 Hr Interval Summary Free Text/Dictation less reported abd pain Exam/Review of Systems Vital Signs Vitals Vital Signs Date Time Temp Pulse Resp B/P Pulse Ox O2 Delivery O2 Flow Rate FiO2 04/02/17 08:07 98.4 60 20 100/61 97 04/01/17 20:00 Room Air 04/01/17 19:04 2.0 Intake and Output 04/01/17 04/01/17 04/02/17 15:00 23:00 07:00 Intake Total 1000 ml 750 ml Balance 1000 ml 750 ml Exam Constitutional: alert Psych: nl mood/affect Respiratory: clear to auscultation, normal air movement Cardiovascular: regular rate and rhythm Gastrointestinal: soft, tender (Minimal) Neurological: INSPECTOR TOOL II-XII intact, nl mental status, nl speech Skin: nl turgor Results Result Diagram: 04/02/17 0526 04/02/17 0526 Results 24 hrs Laboratory Tests Test 04/01/17 12:06 04/01/17 16:00 04/01/17 20:17 04/02/17 05:26 Bedside Glucose 124 129 Urine Test NEGATIVE White Blood Count 6.5 Red Blood Count 4.23 Hemoglobin 10.5 L Hematocrit 33.0 L Mean Corpuscular Volume 78.0 L Mean Corpuscular Hemoglobin 24.8 L Mean Corpuscular Hemoglobin Concent 31.8 L Red Cell Distribution Width 14.4 Platelet Count 378 Mean Platelet Volume 8.6 Neutrophils % 59.1 Lymphocytes % 32.0 Monocytes % 6.3 Eosinophils % 1.5 Basophils % 0.6 Nucleated Red Blood Cells % 0.0 Neutrophils # 3.8 Lymphocytes # 2.1 Monocytes # 0.4 Eosinophils # 0.1 Basophils # 0.0 Nucleated Red Blood Cells # 0.0 Prothrombin Time 13.6 Prothrombin Time Ratio 1.1 INR International Normalized Ratio 1.04 Activated Partial Thromboplast Time 29.3 Sodium Level 133 L Potassium Level 3.4 L Chloride Level 107 Carbon Dioxide Level 26 Anion Gap 3 #L Blood Urea Nitrogen 4 L Creatinine 0.77 Glucose Level 113 Calcium Level 8.7 Total Bilirubin 0.1 L Direct Bilirubin 0.00 Indirect Bilirubin 0.1 Aspartate Amino Transf (AST/SGOT) 51 H Alanine Aminotransferase (ALT/SGPT) 72 H Alkaline Phosphatase 98 Total Protein 6.7 Albumin 3.3 Globulin 3.40 H Albumin/Globulin Ratio 0.97 Test 04/02/17 08:40 Bedside Glucose 100 Medications Medications Current Medications Ondansetron HCl (Zofran Inj) 4 mg Q6H PRN IV NAUSEA AND/OR VOMITING Last administered on 03/31/17 11:44; Admin Dose 4 MG; Start 03/30/17 at 09:00 Morphine Sulfate 3 mg 3 mg Q4H PRN IV SEVERE PAIN LEVEL 7-10 Last administered on 03/31/17 10:14; Admin Dose 3 MG; Start 03/30/17 at 09:00 Piperacillin Sod/ Tazobactam Sod (Zosyn 3.375gm/ 100 ml (Pmx)) 100 ml @ 200 mls /hr Q6 IVPB Last administered on 04/02/17 06:38; Admin Dose 200 MLS/HR; Start 03/30/17 at 12:00 Pantoprazole (Protonix Iv) 40 mg BID@06,18 IV Last administered on 04/02/17 06:38; Admin Dose 40 MG; Start 03/30/17 at 18:00 Hyoscyamine (Levsin) 0.125 mg Q4H PRN PO pain; Start 04/01/17 at 19:00 Diagnostic Test (Pha) (Accu-Chek) 1 ea 02 XX ; Start 04/02/17 at 02:00 DUSTIN HUERTAS Apr 02, 2017 10:52
[2017-04-02 14:38] VITALS: BP 125/70; RESP 20
[2017-04-02] MEDS ORDERED: SOD CHLORIDE 0.9% 100 ML ONE (17:37)
[2017-04-02] MEDS ORDERED: IOHEXOL 300MG/ML 150 ML BTL ONE (17:37)
[2017-04-02] MEDS: PANTOPRAZOLE (EC) 40 MG TAB PO SCH (18:48)
[2017-04-02 20:32] VITALS: BP 97/57; PULSE 63; RESP 20
[2017-04-03] MEDS: PIPER-TAZO 3.375 GM IV (PMX) 100 ML IVPB SCH ×4 (00:36→18:20)
[2017-04-03] MEDS: ACCU-CHEK XX SCH (02:00)
[2017-04-03 03:54] VITALS: BP 90/53; PULSE 56; RESP 20
[2017-04-03] MEDS: PANTOPRAZOLE (EC) 40 MG TAB PO SCH ×2 (06:16→18:20)
--- NOTE | 2017-04-03 07:17 | RADRPT ---
PROCEDURE: CT abdomen and pelvis with and without contrast. CLINICAL INDICATION: Abdominal Pain TECHNIQUE: CT scan of the abdomen and pelvis without contrast was performed and is reconstructed a t 2.5 mm contiguous axial intervals from the dome of the diaphragm to the inferior pubic rami.. The patient was then scanned with 100 cc intravenous contrast. Sagittal and coronal reformatted images were obtained from the axial source images. The calculated radiation dose measures 2572 mGy centime ters. The CTDI measures to 22 mGy. Individualized dose optimization technique was used for the performance of this exam. This included 1. Automated exposure control. 2. Adjustment of the mA and / or kV according to the patient's size. 3. Use of iterative reconstructed technique. COMPARISON: None. FINDINGS: The lung bases are clear of any infiltrate or nodule. No effusion is seen. Liver is enlarged measuring 20 cm. There is fatty infiltration. No mass or ductal dilatation is seen . No gallstones are visualized. No splenic, adrenal or pancreatic abnormalities present. Kidneys enhance symmetrically and are of normal size and contour. No hydronephrosis, calculus or m asses seen. Ureters are of normal course and caliber with no stone. No bladder mass or stone is pr esent. Uterus and ovaries are normal. There is no aneurysm. No adenopathy is present. No bowel mass or obstruction is present. The appendix is normal. No phlegmon, ascites or pneumop eritoneum is visualized. The osseous structures are intact. IMPRESSION: No evidence of urolithiasis, obstructive uropathy, diverticulitis or appendicitis. Enlarged fatty liver. .Adiel Jasmine MD, Date Time Electronically viewed and signed by .Adiel Jasmine MD, MD on 04/03/2017 07:17 .A/
[2017-04-03 07:40] VITALS: BP 100/57; RESP 17
[2017-04-03] MEDS: INSULIN ASPART [NOVOLOG] 3 ML PEN SC SCH ×4 (08:15→21:00)
--- NOTE | 2017-04-03 10:13 | PN ---
Date/Time of Note Date/Time of Note DATE: 04/03/17 TIME: 10:11 Assessment/Plan VTE Prophylaxis VTE Prophylaxis Intervention: SCD's Lines/Catheters IV [facility]ter [facility]from [facility] Saline Lock Assessment/Plan Chief Complaint/Hosp Course Assessment and plan 1. Reported abdominal pain. Previous imaging from outside facility was suspect for possible cholecystitis however abdominal ultrasound imaging done while in-house was negative for any acute findings. Lipase normal. CT scan of the abdomen on April 02, 2017 with no significant findings. No evidence of urolithiasis or obstructive uropathy or diverticulitis or appendicitis. Continue PPI medication for now. Will add simethicone. Follow-up on EEG pathology. 2. Type 2 diabetes. Continue insulin regimen. Will just need. Stable at present. 3. History of gastritis. Continue PPI medication 4. Obesity. BMI of 38. Weight reduction is advised. Disposition plan: Continue PPI medication. Follow-up on EGD biopsy. Discharge when medically stable and cleared by consultants Discussed plan of care with Dr. Frost Problems: Subjective 24 Hr Interval Summary Free Text/Dictation Still reports having some abdominal pain more on right lower abdominal quadrant. Intermittent at times but can be as high as 7 out of 10. Has good response from opiate analgesic. Exam/Review of Systems Vital Signs Vitals Vital Signs Date Time Temp Pulse Resp B/P Pulse Ox O2 Delivery O2 Flow Rate FiO2 04/03/17 07:40 97.9 62 17 100/57 98 04/03/17 03:54 Room Air 04/01/17 19:04 2.0 Intake and Output 04/02/17 04/02/17 04/03/17 15:00 23:00 07:00 Intake Total 200 ml 100 ml 200 ml Balance 200 ml 100 ml 200 ml Exam Constitutional: alert, oriented Psych: nl mood/affect Head: normocephalic Neck: supple, No jvd Respiratory: clear to auscultation, normal air movement Cardiovascular: regular rate and rhythm Gastrointestinal: soft, tender (Minimally towards right lower abdominal quadrant) Extremities: normal pulses Neurological: GU[employer] II-XII intact, nl mental status, nl speech Skin: nl turgor Results Result Diagram: 04/02/17 0526 04/02/17 0526 Results 24 hrs Laboratory Tests Test 04/02/17 12:07 04/02/17 18:39 04/02/17 22:14 04/03/17 08:25 Bedside Glucose 118 113 113 106 Medications Medications Current Medications Ondansetron HCl (Zofran Inj) 4 mg Q6H PRN IV NAUSEA AND/OR VOMITING Last administered on 03/31/17 11:44; Admin Dose 4 MG; Start 03/30/17 at 09:00 Morphine Sulfate 3 mg 3 mg Q4H PRN IV SEVERE PAIN LEVEL 7-10 Last administered on 03/31/17 10:14; Admin Dose 3 MG; Start 03/30/17 at 09:00 Piperacillin Sod/ Tazobactam Sod (Zosyn 3.375gm/ 100 ml (Pmx)) 100 ml @ 200 mls /hr Q6 IVPB Last administered on 04/03/17 06:15; Admin Dose 200 MLS/HR; Start 03/30/17 at 12:00 Diagnostic Test (Pha) (Accu-Chek) 1 ea 02 XX ; Start 04/02/17 at 02:00 Pantoprazole (Protonix Tab) 40 mg BID@06,18 PO Last administered on 04/03/17 06:16; Admin Dose 40 MG; Start 04/02/17 at 18:00 Hyoscyamine (Levsin) 0.125 mg Q4H PRN PO pain; Start 04/03/17 at 08:36 DUSTIN HUERTAS Apr 03, 2017 10:13
[2017-04-03] MEDS: HYOSCYAMINE 0.125 MG TAB PO PRN (12:40)
--- NOTE | 2017-04-03 14:16 | PN ---
Date/Time of Note Date/Time of Note DATE: 04/03/17 TIME: 14:06 Assessment/Plan VTE Prophylaxis VTE Prophylaxis Intervention: ambulation Lines/Catheters IV C[facility]ter Type (from [facility]): Saline Lock Assessment/Plan Chief Complaint/Hosp Course Summary Assessment and Plan: Assessment: Abdominal pain EGD Impression: Moderate gastritis. Rule out H. pylori infection. Biopsies obtained COLONOSCOPY Impression: Normal colonic mucosa to cecum. Random biopsies obtained to rule out microscopic, lymphocytic or collagenous colitis. Moderate-sized internal hemorrhoids. Microcytic anemia- stable Type 2 diabetes Obesity Plan: Continue po PPI therapy with plan to decrease to daily in near future Continue levsin as needed Encourage ambulation CT abd/pelvis for abd pain / microcytic anemia completed 04/02- fatty liver otherwise negative Patient seen in collaboration with Dr. Silva Subjective: Course reviewed with nursing staff Patient interviewed and examined All labs, imaging and other results reviewed The patient lying in bed continues to have abd pain with loose stool although they have improved Discussed results of CT abd/pelvis with patient- patient verbalized understanding PHYSICAL EXAMINATION: GENERAL: Well developed, well nourished, obese, alert & oriented x 3, in no acute distress SKIN: No lesions, no stigmata chronic liver disease, no evidence of bleeding diathesis LYMPHATIC: No palpable lymphadenopathy. HEAD: Normocephalic, atraumatic, no tenderness. EYES: Pupils equal reactive to light and accommodation, full extraocular movements, sclera clear, non-icteric, no discharge. EARS/NOSE AND THROAT: Ears normal, nose normal, oropharynx normal, oral membranes well hydrated without lesions. NECK: Supple, no masses, thyroid normal, JVP within normal limits, carotids normal without bruits. CHEST: Inspection within normal limits. CARDIOVASCULAR: Heart: Regular rate and rhythm, no murmurs, gallops or rubs. Peripheral pulses present within normal limits, no cyanosis, clubbing or edemas. No pulsatile abdominal mass RESPIRATORY: Lungs clear to auscultation and percussion, no wheezing, no rubs GASTROINTESTINAL AND LIVER: Abdomen: Soft, epigastric and lower abdominal tenderness, non-distended, no hernias, no masses, no organomegaly, no ascites, no guarding, no rebound tenderness, normoactive bowel sounds. Rectal: Deferred. GENITOURINARY: [Male genitalia within normal limits.] EXTREMITIES: No cyanosis, clubbing or edema. [MUSCULO-SKELETAL: Gait and station within normal limits, range of motion adequate.] [NEUROLOGIC: Cranial nerves II-XII intact, Motor within normal limits, Sensory within normal limits. Reflexes within normal limits. PSYCHIATRIC: Alert & oriented x 3, mood/affect/judgement adequate] Problems: Exam/Review of Systems Vital Signs Vitals Vital Signs Date Time Temp Pulse Resp B/P Pulse Ox O2 Delivery O2 Flow Rate FiO2 04/03/17 07:40 97.9 62 17 100/57 98 04/03/17 03:54 Room Air 04/01/17 19:04 2.0 Intake and Output 04/02/17 04/02/17 04/03/17 15:00 23:00 07:00 Intake Total 200 ml 100 ml 200 ml Balance 200 ml 100 ml 200 ml Results Result Diagram: 04/02/17 0526 04/02/17 0526 Results 24 hrs Laboratory Tests Test 04/02/17 18:39 04/02/17 22:14 04/03/17 08:25 04/03/17 12:10 Bedside Glucose 113 113 106 118 Medications Medications Current Medications Ondansetron HCl (Zofran Inj) 4 mg Q6H PRN IV NAUSEA AND/OR VOMITING Last administered on 03/31/17 11:44; Admin Dose 4 MG; Start 03/30/17 at 09:00 Morphine Sulfate 3 mg 3 mg Q4H PRN IV SEVERE PAIN LEVEL 7-10 Last administered on 03/31/17 10:14; Admin Dose 3 MG; Start 03/30/17 at 09:00 Piperacillin Sod/ Tazobactam Sod (Zosyn 3.375gm/ 100 ml (Pmx)) 100 ml @ 200 mls /hr Q6 IVPB Last administered on 04/03/17 12:41; Admin Dose 200 MLS/HR; Start 03/30/17 at 12:00 Diagnostic Test (Pha) (Accu-Chek) 1 ea 02 XX ; Start 04/02/17 at 02:00 Pantoprazole (Protonix Tab) 40 mg BID@06,18 PO Last administered on 04/03/17 06:16; Admin Dose 40 MG; Start 04/02/17 at 18:00 Hyoscyamine (Levsin) 0.125 mg Q4H PRN PO pain Last administered on 04/03/17 12:40; Admin Dose 0.125 MG; Start 04/03/17 at 08:36 Simethicone (Mylicon) 80 mg TID PO Last administered on 04/03/17 12:40; Admin Dose 80 MG; Start 04/03/17 at 13:00 ANATOLY SÁNCHEZ Apr 03, 2017 14:16
[2017-04-03 14:33] VITALS: BP 106/69; RESP 18
[2017-04-03 20:01] VITALS: BP 93/55; RESP 18
[2017-04-04] MEDS: PIPER-TAZO 3.375 GM IV (PMX) 100 ML IVPB SCH ×4 (00:18→17:30)
[2017-04-04 01:59] VITALS: BP 101/56; RESP 18
[2017-04-04] MEDS: ACCU-CHEK XX SCH (02:00)
[2017-04-04] MEDS: PANTOPRAZOLE (EC) 40 MG TAB PO SCH ×2 (05:40→17:33)
[2017-04-04 06:00] LABS: BASOPHIL # 0.1 10^3/ul (0.0-0.1); BASOPHILS % 0.7 % (0.0-2.0); EOSINOPHILS # 0.2 10^3/ul (0.0-0.5); EOSINOPHILS % 2.5 % (0.0-7.0); HEMATOCRIT 37.1 % (37.0-47.0); HEMOGLOBIN 11.9 g/dl (12.0-16.0); LYMPHOCYTES # 2.8 10^3/ul (0.8-2.9); LYMPHOCYTES % 37.3 % (15.0-51.0); MEAN CORPUSCULAR HEMOGLOBIN 24.9 pg (29.0-33.0); MEAN CORPUSCULAR HGB CONC 32.1 g/dl (32.0-37.0); MEAN CORPUSCULAR VOLUME 77.8 fl (82.0-101.0); MEAN PLATELET VOLUME 8.6 fl (7.4-10.4); MONOCYTE # 0.4 10^3/ul (0.3-0.9); MONOCYTES % 5.5 % (0.0-11.0); NEUTROPHIL # 4.1 10^3/ul (1.6-7.5); NEUTROPHILS % 53.7 % (39.0-77.0); PLATELET COUNT 440 10^3/UL (140-415); RED BLOOD COUNT 4.77 10^6/ul (4.20-5.40); RED CELL DISTRIBUTION WIDTH 14.4 % (11.5-14.5); WHITE BLOOD COUNT 7.6 10^3/ul (4.8-10.8)
[2017-04-04 06:20] LABS: CALCIUM 8.9 mg/dl (8.4-10.2); CREATININE 0.88 mg/dl (0.44-1.00); POTASSIUM 3.9 mmol/L (3.5-5.1)
[2017-04-04 08:00] VITALS: BP 96/61; RESP 18
[2017-04-04] MEDS: INSULIN ASPART [NOVOLOG] 3 ML PEN SC SCH ×3 (08:03→17:29)
[2017-04-04] MEDS: HYOSCYAMINE 0.125 MG TAB PO PRN (09:47)
--- NOTE | 2017-04-04 10:34 | PDOCDIS ---
Discharge Instructions DIAGNOSIS Discharge Diagnosis Moderate gastritis. CONDITION Patient Condition: Stable HOME CARE INSTRUCTIONS: Special Diet: Carb Controlled FOLLOW UP/APPOINTMENTS Follow-up Plan Nicanor Conde MD Specialty: Internal Medicine Office Address: [address] [place], [place] [id number] Office OTHER ORDERS: Other Orders: 1. Resume home medications. Start taking Protonix and as needed Levsin. Avoid NSAIDs (Motrin, ibuprofen), 2. Take a carbohydrate controlled diet. 3. Follow-up with your primary care physician in 1 week. If you do not have a primary care physician, please call Dr. Nicanor Conde's office. KEITH PISANO NP Apr 04, 2017 10:34
[2017-04-04] MEDS ORDERED: PANT40TA4 PO (10:36)
[2017-04-04] MEDS ORDERED: HYOS0.1274 PO (10:36)
--- NOTE | 2017-04-04 10:44 | DS ---
Date/Time of Note Date/Time of Note DATE: 04/04/17 TIME: 10:41 Discharge Summary Admission/Discharge Info Admit Date/Time Mar 30, 2017 at 05:30 Discharge Date/Time Discharge Diagnosis 1. Moderate gastritis. 2. Type 2 diabetes mellitus. 3. Diabetic neuropathy. 4. Obesity. Patient Condition: Stable Consults 1. Elly Silva MD, Gastroenterology. Procedures CT Abdomen and Pelvis IMPRESSION: No evidence of urolithiasis, obstructive uropathy, diverticulitis or appendicitis. Enlarged fatty liver. Abdominal Ultrasound IMPRESSION: Diffuse fatty infiltration of the liver. Otherwise unremarkable. Esophagogastroduodenoscopy Pre-procedure Diagnosis Abdominal pain Post-procedure Diagnosis Impression: Moderate gastritis. Colonoscopy Pre-procedure Diagnosis Abdominal pain Post-procedure Diagnosis Impression: Normal colonic mucosa to cecum. Random biopsies obtained to rule out microscopic, lymphocytic or collagenous colitis. Moderate-sized internal hemorrhoids. Hx of Present Illness This is a 36-year-old obese female with a history of type 2 diabetes, gastritis , and neuropathy who initially presented to [facility] ER complaining of abdominal pain 2 days. Patient was transferred to [facility] for insurance reasons. Pain was in the epigastric and also right upper quadrant area. The pain intermittently radiated to her back. She reported associated diarrhea described as watery and loose. She also reported nausea and nonbloody nonbilious vomiting. She said she had similar symptom but was of less intensity 2 months ago. At that time she said she was diagnosed with a UTI and treated with antibiotic. On further questioning, she said she had tacos at a friend's house and she believed it was under cooked. She had imaging at the outside hospital which showed pericholecystic fluid, but was negative for Gallstones. Her initial vitals was within normal limits except that she was tachycardic with a heart rate of 111. LFTs and lipase were within acceptable range. Hospital Course The patient was admitted to inpatient setting. The patient underwent a CT scan of abdomen and pelvis that was negative for any cholelithiasis or cholecystitis. The patient's abdominal ultrasound was negative for any cholelithiasis with the common bile duct measuring 4 mm in maximal dimension. Therefore, it was concluded that the patient's abdominal pain is probably secondary to some other reason. Gastroenterology consult was obtained. The patient underwent a esophagogastroduodenoscopy and colonoscopy. The patient's esophagogastroduodenoscopy revealed moderate gastritis. Consequently, the patient was maintained on proton pump inhibitor therapy. The patient's a biopsy results from esophagogastroduodenoscopy is pending at this time. The patient's colonoscopy revealed moderate size internal hemorrhoids. The patient' s stool studies were negative. The patient continued to have abdominal pain. Hence it was concluded that the patient probably has muscle spasms as the patient's abdominal pain responded well to hyoscyamine. The patient has underlying type 2 diabetes mellitus. She was noticed to have a hemoglobin A1c of 6.6. She was maintained on sliding scale insulin with well- controlled blood sugars throughout the hospital course. Upon discharge, the patient will be resumed on metformin. The patient had a stable hospital course. The patient is stable to be discharged home. Discharge Instructions 1. Resume home medications. Start taking Protonix and as needed Levsin. Avoid NSAIDs (Motrin, ibuprofen), 2. Take a carbohydrate controlled diet. 3. Follow-up with your primary care physician in 1 week. If you do not have a primary care physician, please call Dr. Nicanor Codne's office. 4. Activities as tolerated. The patient verbalized understanding of her discharge instructions. Case discussed with Dr. Nuno. Home Meds Active Scripts Hyoscyamine Sulfate* (Levsin*) 0.125 Mg Tablet, 0.125 MG PO Q4H Y for pain, #10 TAB Prov:KEITH PISANO [employer] [facility] 04/04/17 Pantoprazole* (Pantoprazole*) 40 Mg Tablet., 40 MG PO BID@06,18, #60 TAB Prov:KEITH PISANO [employer] 04/04/17 Reported Medications Gabapentin* (Neurontin*) 300 Mg Capsule, 300 MG PO DAILY AT HS, #60 CAP 03/30/17 Metformin* (Glucophage* XR) 500 Mg Tab.sr.24h, 500 MG PO DAILY, #30 TAB 03/30/17 Discontinued Reported Medications Ibuprofen* (Ibuprofen*) 200 Mg Capsule, 300 MG PO QID Y for PAIN, CAP 03/30/17 Tramadol HCl (Tramadol HCl) 50 Mg Tablet, 50 MG PO TID for PAIN, #90 TAB 03/30/17 Omeprazole* (Omeprazole*) 40 Mg Capsule., 40 MG PO DAILY, #30 CAP 03/30/17 Follow-up Plan Nicanor Conde MD Specialty: Internal Medicine Office Address: [address] [place] [address] [place] [address] Office Primary Care Provider Not On Staff Doctor Time spent on discharge: > 30 minutes Pending Labs Laboratory Tests Test 04/03/17 12:10 04/03/17 17:34 04/03/17 21:47 04/04/17 05:05 Bedside Glucose 118mg/dL (70-220) 100mg/dL (70-220) 120mg/dL (70-220) White Blood Count 7.610^3/ul (4.8-10.8) Red Blood Count 4.7710^6/ul (4.20-5.40) Hemoglobin 11.9g/dl (12.0-16.0) Hematocrit 37.1% (37.0-47.0) Mean Corpuscular Volume 77.8fl (82.0-101.0) Mean Corpuscular Hemoglobin 24.9pg (29.0-33.0) Mean Corpuscular Hemoglobin Concent 32.1g/dl (32.0-37.0) Red Cell Distribution Width 14.4% (11.5-14.5) Platelet Count 43299^3/UL (140-415) Mean Platelet Volume 8.6fl (7.4-10.4) Neutrophils % 53.7% (39.0-77.0) Lymphocytes % 37.3% (15.0-51.0) Monocytes % 5.5% (0.0-11.0) Eosinophils % 2.5% (0.0-7.0) Basophils % 0.7% (0.0-2.0) Nucleated Red Blood Cells % 0.0/100WBC (0.0-0.0) Neutrophils # 4.110^3/ul (1.6-7.5) Lymphocytes # 2.810^3/ul (0.8-2.9) Monocytes # 0.410^3/ul (0.3-0.9) Eosinophils # 0.210^3/ul (0.0-0.5) Basophils # 0.110^3/ul (0.0-0.1) Nucleated Red Blood Cells # 0.010^3/ul (0.0-0.0) Sodium Level 140mmol/L (135-144) Potassium Level 3.9mmol/L (3.5-5.1) Chloride Level 106mmol/L (97-110) Carbon Dioxide Level 25mmol/L (21-31) Anion Gap 13 (8-16) Blood Urea Nitrogen 13mg/dl (7-20) Creatinine 0.88mg/dl (0.44-1.00) Glucose Level 111mg/dl (70-220) Calcium Level 8.9mg/dl (8.4-10.2) Test 04/04/17 08:01 Bedside Glucose 123mg/dL (70-220) KEITH PISANO NP Apr 04, 2017 10:44
[2017-04-04 14:00] VITALS: BP 105/60; RESP 18
== END 2017-04-04 18:50 | disposition home or self-care (01) | DRG 392 ==
LOC: MS2 05:30
PROVIDERS: ADMIT Internal Medicine; ATTEND Internal Medicine
PROC: 0DB68ZX Excision of Stomach, Via Natural or Artificial Opening Endoscopic, Diagnostic (ICD-10-PCS; 2017-04-01)
PROC: 0DB78ZX Excision of Stomach, Pylorus, Via Natural or Artificial Opening Endoscopic, Diagnostic (ICD-10-PCS; 2017-04-01)
PROC: 0DBG8ZX Excision of Left Large Intestine, Via Natural or Artificial Opening Endoscopic, Diagnostic (ICD-10-PCS; principal; 2017-04-01 18:00)
PROC: 0DBF8ZX Excision of Right Large Intestine, Via Natural or Artificial Opening Endoscopic, Diagnostic (ICD-10-PCS; 2017-04-01 18:00)
DX: K29.70 Gastritis, unspecified, without bleeding (principal); E11.40 Type 2 diabetes mellitus with diabetic neuropathy, unspecified; Z79.4 Long term (current) use of insulin; E66.9 Obesity, unspecified; Z68.38 Body mass index [BMI] 38.0-38.9, adult; D50.9 Iron deficiency anemia, unspecified; K64.8 Other hemorrhoids; D64.9 Anemia, unspecified; K21.9 Gastro-esophageal reflux disease without esophagitis
CPT/HCPCS: 71020; 74178; 76700; 80048; 80053; 80061; 81001; 81003; 82962; 83036; 83690; 83735; 84100; 84703; 85025; 85610; 85730; 87045; 87086; 88305; 88312; 90686; 93005; C9113; J1815; J1885; J2270; J2405; J2543; J7030; J7042; Q9967